=== PATIENT | male | born 1955 | race Asian ===

== ENCOUNTER → 2016-06-22 | Outpatient (CLI) | payer BC ==
[2016-06-22 12:05] LABS: BASOPHILS % 0.4 % (0.0-2.0); EOSINOPHILS # 0.3 10^3/ul (0.0-0.5); EOSINOPHILS % 5.7 % (0.0-7.0); HEMATOCRIT 44.9 % (42.0-52.0); HEMOGLOBIN 15.3 g/dl (14.0-18.0); LYMPHOCYTES # 1.9 10^3/ul (0.8-2.9); LYMPHOCYTES % 37.7 % (15.0-51.0); MEAN CORPUSCULAR HEMOGLOBIN 31.4 pg (29.0-33.0); MEAN CORPUSCULAR HGB CONC 34.2 g/dl (32.0-37.0); MEAN CORPUSCULAR VOLUME 91.8 fl (82.0-101.0); MONOCYTE # 0.4 10^3/ul (0.3-0.9); MONOCYTES % 7.7 % (0.0-11.0); NEUTROPHIL # 2.5 10^3/ul (1.6-7.5); NEUTROPHILS % 48.5 % (39.0-77.0); PLATELET COUNT 219 10^3/UL (140-440); RED BLOOD COUNT 4.89 10^6/ul (4.70-6.10); RED CELL DISTRIBUTION WIDTH 13.2 % (11.5-14.5); UNCORRECTED WBC 5.1 10^3/ul (4.8-10.8); WHITE BLOOD COUNT 5.1 10^3/ul (4.8-10.8)
[2016-06-22 12:06] LABS: CONDITION 1
--- NOTE | 2016-06-22 12:12 | RADRPT ---
PROCEDURE: Chest 2 views. CLINICAL INDICATION: Shortness of breath, pneumonia TECHNIQUE: PA and lateral views of the chest were obtained. COMPARISON: June 04, 2012 FINDINGS: The heart size is within normal limits. Calcified atherosclerosis is noted in the aorta. Prominence of the central pulmonary arteries is unchanged. Median sternotomy wires and surgical clips overlie the heart. The lungs are hyperexpanded. No consolidations are identified. No pneumothorax is seen. Mild peribronchial cuffing is identified in the central lungs. Osseous structures are intact. IMPRESSION: Calcified atherosclerosis in the aorta. Hyperexpanded lungs. Mild peribronchial cuffing in the central lungs. Finding could reflect bronchitis. Stable prominence of the central pulmonary arteries, possibly indicating pulmonary arterial hyperten hamilton. RPTAT: AA .Tyler Gardner MD, MD Date Time Electronically viewed and signed by .Tyler Gardner MD, MD on 06/22/2016 12:12 .P/
[2016-06-22 12:36] LABS: ALBUMIN 4.4 g/dl (3.3-4.9)
[2016-06-22 12:37] LABS: POTASSIUM 4.1 mmol/L (3.5-5.1)
[2016-06-22 12:39] LABS: ALBUMIN/GLOBULIN RATIO 1.69; BILIRUBIN,INDIRECT 0.3 mg/dl (0-1.1); BILIRUBIN,TOTAL 0.3 mg/dl (0.2-1.3); CREATININE 0.64 mg/dl (0.61-1.24)
[2016-06-22 12:40] LABS: CALCIUM 9.1 mg/dl (8.4-10.2); CHOL/HDL RATIO 3.3 RATIO; MAGNESIUM 2.1 mg/dl (1.7-2.5)
[2016-06-22 13:09] LABS: PROSTATE SPECIFIC ANTIGEN 0.9 ng/ml (0.0-4.0); THYROID STIMULATING HORMONE 2.61 MIU/L (0.465-4.680)
== END | disposition home or self-care (01) ==
LOC: RAD 10:54
PROVIDERS: ATTEND Internal Medicine
DX: J18.9 Pneumonia, unspecified organism (principal); E78.5 Hyperlipidemia, unspecified; E03.9 Hypothyroidism, unspecified; E55.9 Vitamin D deficiency, unspecified; N40.0 Benign prostatic hyperplasia without lower urinary tract symptoms
CPT/HCPCS: 71020; 80053; 80061; 82306; 83735; 84153; 84154; 84436; 84443; 85025

== ENCOUNTER 2016-09-15 16:49 | Inpatient (IN) | payer BC ==
[~2016-09-15] VITALS: Ht 167.6 cm; Wt 58.0 kg
[2016-09-15 17:22] LABS: ADD SCAN DIFF NO
[2016-09-15 17:23] LABS: BASOPHIL # 0.1 10^3/ul (0.0-0.1); BASOPHILS % 0.6 % (0.0-2.0); EOSINOPHILS # 0.5 10^3/ul (0.0-0.5); EOSINOPHILS % 6.4 % (0.0-7.0); HEMATOCRIT 45.9 % (42.0-52.0); HEMOGLOBIN 15.7 g/dl (14.0-18.0); LYMPHOCYTES # 2.7 10^3/ul (0.8-2.9); LYMPHOCYTES % 32.1 % (15.0-51.0); MEAN CORPUSCULAR HEMOGLOBIN 31.2 pg (29.0-33.0); MEAN CORPUSCULAR HGB CONC 34.2 g/dl (32.0-37.0); MEAN CORPUSCULAR VOLUME 91.1 fl (82.0-101.0); MONOCYTE # 0.7 10^3/ul (0.3-0.9); MONOCYTES % 7.9 % (0.0-11.0); NEUTROPHIL # 4.4 10^3/ul (1.6-7.5); NEUTROPHILS % 52.8 % (39.0-77.0); PLATELET COUNT 187 10^3/UL (140-415); RED BLOOD COUNT 5.04 10^6/ul (4.70-6.10); RED CELL DISTRIBUTION WIDTH 13.1 % (11.5-14.5); WHITE BLOOD COUNT 8.3 10^3/ul (4.8-10.8)
[2016-09-15] MEDS ORDERED: ENOXAPARIN 80 MG/0.8 ML SYG SC SCH (17:30)
[2016-09-15] MEDS ORDERED: DILTIAZEM-D5W 125MG/125ML DRIP 125 ML IV SCH (17:30)
[2016-09-15] MEDS ORDERED: DILTIAZEM 25 MG INJ IV ONE (17:30)
[2016-09-15] MEDS ORDERED: LEVO25TA53 PO (17:33)
[2016-09-15] MEDS ORDERED: ATOR40TA68 PO (17:33)
[2016-09-15 17:39] LABS: INR 0.89; PT RATIO 0.9
[2016-09-15 17:40] LABS: PARTIAL THROMBOPLASTIN TIME 30.4 Sec (25.0-35.0)
[2016-09-15 17:51] LABS: ALBUMIN 4.4 g/dl (3.3-4.9); CHLORIDE 107 mmol/L (97-110); POTASSIUM 3.3 mmol/L (3.5-5.1); SODIUM 143 mmol/L (135-144)
[2016-09-15 17:53] LABS: BILIRUBIN,INDIRECT 0.3 mg/dl (0-1.1); BILIRUBIN,TOTAL 0.3 mg/dl (0.2-1.3); CREATININE 0.76 mg/dl (0.61-1.24)
[2016-09-15 17:54] LABS: ALANINE AMINOTRANSFERASE 39 IU/L (13-69); ALBUMIN/GLOBULIN RATIO 1.51; ALKALINE PHOSPHATASE 63 IU/L (42-121); ANION GAP 16 (8-16); ASPARTATE AMINO TRANSFERASE 25 IU/L (15-46); BLOOD UREA NITROGEN 13 mg/dl (7-20); CARBON DIOXIDE 23 mmol/L (21-31); GLUCOSE 158 mg/dl (70-220); TOTAL PROTEIN 7.3 g/dl (6.1-8.1)
[2016-09-15 17:55] LABS: CALCIUM 9.1 mg/dl (8.4-10.2)
[2016-09-15 18:06] LABS: TROPONIN-I < 0.012 ng/ml (0.00-0.12)
--- NOTE | 2016-09-15 18:19 | RADRPT ---
PROCEDURE: XR Chest. CLINICAL INDICATION: Chest pain. TECHNIQUE: PA and Lateral views of the chest were obtained. COMPARISON: 06/22/2016. FINDINGS: Cardiomegaly. Atherosclerotic calcifications in the thoracic aorta. Prominent pulmonary arteries smith ggest pulmonary vascular hypertension. Likely hyperinflation of COPD and changes of centrolobular emphysema. The lungs are otherwise clear . No signs of pleural fluid or pneumothorax are seen. The osseous structures and soft tissues are un remarkable. IMPRESSION: 1. Cardiomegaly. 2. Atherosclerotic calcifications in the thoracic aorta. 3. Suspected pulmonary vascular hypertension. 4. Otherwise, no acute process in the chest. RPTAT: [facility] Physician Domingo Date Time Electronically viewed and signed by Physician Domingo on 09/15/2016 18:19 RS/
--- NOTE | 2016-09-15 19:11 | ERA ---
ER Documentation Chief Complaint Date/Time DATE: 09/15/16 TIME: 19:07 Chief Complaint PALPITATIONS STARTED 20MIN PRIOR TO ARRIVAL HPI This is a 61-year-old male who states he was at home when he suddenly developed palpitations that did not resolve after 2030 minutes so he is here for evaluation. 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 The patient states he has no chest pain no dizziness no shortness of breath. No history of arrhythmias in the past. Patient states he currently feels the palpitations but no other symptoms. ROS All systems reviewed and are negative except as per history of present illness. Medications Home Meds Reported Medications Levothyroxine Sodium* (Levothyroxine Sodium*) 25 Mcg Tablet, 25 MCG PO BEFORE BREAKFAST, #30 TAB 09/15/16 Atorvastatin* (Atorvastatin*) 40 Mg Tablet, 40 MG PO QHS, #30 TAB 09/15/16 Allergies Allergies: Coded Allergies: Penicillins (Unverified Allergy, Unknown, 09/15/16) PMhx/Soc Hx Cardiac Disorders: Yes (HTN) Hx Psychiatric Problems: No Hx Miscellaneous Medical Probl: No Hx Alcohol Use: No Hx Substance Use: No Hx Tobacco Use: No Smoking Status: Never smoker FmHx Family History: No coronary disease Physical Exam Vitals Vital Signs Date Time Temp Pulse Resp B/P Pulse Ox O2 Delivery O2 Flow Rate FiO2 09/15/16 18:53 75 18 116/63 99 09/15/16 17:48 70 16 118/70 98 Room Air 09/15/16 17:07 156 21 177/97 98 Room Air 09/15/16 16:51 98.1 100 18 138/99 99 Physical Exam Const: Well-developed, well-nourished Head: Atraumatic, normocephalic Eyes: Normal Conjunctiva, PERRLA, EOMI, normal sclera, no nystagmus ENT: Normal External Ears, Nose and Mouth, moist mucus membranes. Neck: Full range of motion. No meningismus, no lymphadenopathy. Resp: Clear to auscultation bilaterally, no wheezing, rhonchi, rales Cardio: Irregular irregular rate and rhythm, no murmurs, S1 S2 present Abd: Soft, non tender x 4, non distended. Normal bowel sounds, no guarding or rebound, no pulsitile abdominal masses or bruits Skin: No petechiae or rashes, no ecchymosis , no maculopapular rash Back: No midline or flank tenderness Ext: No cyanosis, or edema, FROM x 4, normal inspection, neurovascularly intact x 4 Neur: Awake and alert, STR 5/5 x 4, sensation intact x 4, no focal findings, cerebellum intact Psych: Normal Mood and Affect Result Diagram: 09/15/16 1715 09/15/16 1715 Results 24 hrs Laboratory Tests Test 09/15/16 17:15 White Blood Count 8.310^3/ul Red Blood Count 5.0410^6/ul Hemoglobin 15.7g/dl Hematocrit 45.9% Mean Corpuscular Volume 91.1fl Mean Corpuscular Hemoglobin 31.2pg Mean Corpuscular Hemoglobin Concent 34.2g/dl Red Cell Distribution Width 13.1% Platelet Count 48648^3/UL Mean Platelet Volume 10.0fl Neutrophils % 52.8% Lymphocytes % 32.1% Monocytes % 7.9% Eosinophils % 6.4% Basophils % 0.6% Nucleated Red Blood Cells % 0.0/100WBC Neutrophils # 4.410^3/ul Lymphocytes # 2.710^3/ul Monocytes # 0.710^3/ul Eosinophils # 0.510^3/ul Basophils # 0.110^3/ul Nucleated Red Blood Cells # 0.010^3/ul Prothrombin Time 12.0Sec Prothrombin Time Ratio 0.9 INR International Normalized Ratio 0.89 Activated Partial Thromboplast Time 30.4Sec Sodium Level 143mmol/L Potassium Level 3.3mmol/L Chloride Level 107mmol/L Carbon Dioxide Level 23mmol/L Anion Gap 16 Blood Urea Nitrogen 13mg/dl Creatinine 0.76mg/dl Glucose Level 158mg/dl Calcium Level 9.1mg/dl Total Bilirubin 0.3mg/dl Direct Bilirubin 0.00mg/dl Indirect Bilirubin 0.3mg/dl Aspartate Amino Transf (AST/SGOT) 25IU/L Alanine Aminotransferase (ALT/SGPT) 39IU/L Alkaline Phosphatase 63IU/L Troponin I < 0.012ng/ml Total Protein 7.3g/dl Albumin 4.4g/dl Globulin 2.90g/dl Albumin/Globulin Ratio 1.51 Current Medications Medications (Trade) Dose Ordered Sig/[place]alia Route PRN Reason Start Time Stop Time Status Last Admin Dose Admin Enoxaparin Sodium (Lovenox) 60 mg ONCE SC 09/15/16 17:30 09/15/16 17:22 Diltiazem HCl 20 mg 20 mg ONCE ONCE IV 09/15/16 17:30 09/15/16 17:31 DC 09/15/16 17:22 Diltiazem HCl (Cardizem-D5W 125 Mg/125 ml Drip) 125 ml @ 10 mls/hr [id number] IV 09/15/16 17:30 09/15/16 17:22 Procedures/MDM EKG: Rate/Rhythm: A. fib with rapid ventricular response QRS, ST, QT: NORMAL, QRS, QT] Impression: A. fib with RVR EKG] After Cardizem bolus and drip: EK Rate/Rhythm: Rate controlled atrial fibrillation QRS, ST, QT: NORMAL, QRS, QT] Impression: Atrial fibrillation PROCEDURE: XR Chest. CLINICAL INDICATION: Chest pain. TECHNIQUE: PA and Lateral views of the chest were obtained. COMPARISON: 06/22/2016. FINDINGS: Cardiomegaly. Atherosclerotic calcifications in the thoracic aorta. Prominent pulmonary arteries suggest pulmonary vascular hypertension. Likely hyperinflation of COPD and changes of centrolobular emphysema. The lungs are otherwise clear. No signs of pleural fluid or pneumothorax are seen. The osseous structures and soft tissues are unremarkable. IMPRESSION: 1. Cardiomegaly. 2. Atherosclerotic calcifications in the thoracic aorta. 3. Suspected pulmonary vascular hypertension. 4. Otherwise, no acute process in the chest. RPTAT: [facility] Physician Domingo Date Time Electronically viewed and signed by Physician Domingo on 09/15/2016 18:19 RS/ CC: IGNACIA FOWLER DO Patient admitted to the hospital for workup for A. fib and he has been given Lovenox subcu. Patient is not rate controlled A. fib on Cardizem drip Critical Care Time: 30 minutes Treatments/Evaluations: Close monitoring and treatment of unstable vital signs, cardiorespiratory, and neurologic status, while maintaining tight balance of fluid, respiratory, and cardiac interventions. This time includes discussing the case with the patient and the patient's family. This time does not include all procedures stated elsewhere in this record. This time also includes reviewing old records, labs and radiological studies. This time includes examining and re-examining the patient. Additionally, this time also includes arranging care with admitting and consulting physicians. ] Departure Diagnosis: Primary Impression: Atrial fibrillation with RVR Condition: Stable IGNACIA FOWLER DO September 15, 2016 19:11
[2016-09-15] MEDS ORDERED: ACETAMINOPHEN 325 MG TAB PO PRN (19:30)
[2016-09-15] MEDS ORDERED: ONDANSETRON 4 MG INJ IV PRN (19:30)
[2016-09-15 21:15] VITALS: Ht 167.6 cm; Wt 58.0 kg
[2016-09-15 21:18] VITALS: PULSE 77
[2016-09-15 21:29] VITALS: BP 138/78; RESP 16
[2016-09-15] MEDS ORDERED: POTASSIUM CHLORIDE (SR) 20 MEQ TAB PO STA (21:47)
[2016-09-15] MEDS ORDERED: ATORVASTATIN 80 MG TAB PO SCH (22:00)
[2016-09-15] MEDS ORDERED: ZOLPIDEM 5 MG TAB PO PRN (22:00)
[2016-09-15] MEDS ORDERED: ACETAMINOPHEN 500 MG TAB PO PRN (22:00)
[2016-09-15] MEDS ORDERED: DILTIAZEM 25 MG INJ IV PRN (23:30)
[2016-09-16] VITALS (12 sets, daily range): BP systolic 116–145; BP diastolic 57–68; PULSE 41–90; RESP 16–19
--- NOTE | 2016-09-16 03:26 | HP ---
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 Did have mild dizziness when ambulating and the patient was bro ught in by his to the emergency room, from where he was admitted. MEDICATIONS: 1. Levothyroxine 25 mcg p.o. daily. 2. Atorvastatin 40 mg p.o. daily. 3. Aspirin 81 mg p.o. daily. REVIEW OF SYSTEMS: HEAD: No history of headaches, focal weakness, or numbness. EYES: No blurry vision or glaucoma. The patient wears glasses. EARS, NOSE, THROAT: History of recurrent sinusitis. No history of hoarseness. History of hypothyr oidism. NECK: No history of neck pain. History of hypothyroidism. CHEST: History of chronic cough, smokes a pack a day, which he has done for the last 40+ years. No history of hemoptysis or TB. HEART: No prior history of chest pain. Prior history of palpitations. The patient had an anterose ptal repair 20 years ago at [facility]. Had a treadmill done about 4 years ago which was normal. No history of IL or angina. History of hyperlipidemia. GASTROINTESTINAL: No constipation, diarrhea, change in bowel habits. Colonoscopy 5 years ago was n ormal. Appetite good. No history of weight loss or weight gain. GENITOURINARY: No dysuria, hematuria, kidney stones. No history of polyuria or polydipsia. No his tory of urinary urgency. SLEEP: Normal. No history of snoring. PAST SURGICAL HISTORY: Other surgeries include bilateral inguinal hernia surgery. FAMILY HISTORY: Father at age 50 of throat cancer. Mother at age 9797 years old. Six brot hers, 1 sister, normal and healthy except for hypertension. PHYSICAL EXAMINATION: GENERAL: The patient is an average-built male who is very pleasant, presently in no acute distress. VITAL SIGNS: Heart rate in the 80s, irregularly irregular. Blood pressure 116/63, O2 sat is 98% on room air. HEENT: Head normocephalic. No pallor, cyanosis, or icterus. Tongue is moist. NECK: Supple. No thyromegaly, bruits or lymphadenopathy. CHEST: Clinically clear. HEART: S1, S2 heard with irregularly irregular rhythm. No murmurs. ABDOMEN: Soft, nontender, no hepatosplenomegaly, no pulsatile masses. EXTREMITIES: No edema. Pedal pulsations 2+ bilaterally. Homans sign is negative. NEUROLOGIC: No localizing or lateralizing signs. LABORATORY DATA: Initial sodium was 143, potassium 3.3, BUN 13, creatinine 0.76 and glucose 158. W BC count 8.3, hematocrit 44.9, platelet count 187,000. INR 0.89. EKG, first one, shows atrial fibr illation with rapid ventricular response about 150 a minute. Repeat EKG shows A. fib/flutter patter n. IMPRESSION: 1. New onset atrial fibrillation. 2. Hypokalemia. 3. Hyperlipidemia. 4. Underlying chronic obstructive pulmonary disease secondary to smoking. 5. Hypothyroidism. PLAN: The patient will be admitted to the telemetry. Continue statins. Add Lovenox for now. Hold aspirin. Obtain an echocardiogram. We will request cardiology consultation Dr. Dorantes in the mo rning. Replace potassium. Recheck magnesium and potassium levels along with a lipid panel. Hold S ynthroid for now until we get thyroid function studies. The patient again has been suitably advised regarding the need to stop smoking, consideration of anticoagulation after further cardiac evaluati on. Dictated By: CHERY DESAI MD SR/NTS Conf#: [id number] DID#: [id number] CC: CHERY DESAI MD;*EndCC*
[2016-09-16 07:58] LABS: ADD SCAN DIFF NO
[2016-09-16 08:02] LABS: BASOPHIL # 0.1 10^3/ul (0.0-0.1); BASOPHILS % 0.9 % (0.0-2.0); EOSINOPHILS # 0.6 10^3/ul (0.0-0.5); EOSINOPHILS % 8.5 % (0.0-7.0); HEMATOCRIT 47.1 % (42.0-52.0); HEMOGLOBIN 15.3 g/dl (14.0-18.0); LYMPHOCYTES # 2.6 10^3/ul (0.8-2.9); LYMPHOCYTES % 39.5 % (15.0-51.0); MEAN CORPUSCULAR HEMOGLOBIN 30.4 pg (29.0-33.0); MEAN CORPUSCULAR HGB CONC 32.5 g/dl (32.0-37.0); MEAN CORPUSCULAR VOLUME 93.6 fl (82.0-101.0); MEAN PLATELET VOLUME 10.2 fl (7.4-10.4); MONOCYTE # 0.6 10^3/ul (0.3-0.9); NEUTROPHIL # 2.8 10^3/ul (1.6-7.5); NEUTROPHILS % 41.9 % (39.0-77.0); PLATELET COUNT 187 10^3/UL (140-415); RED BLOOD COUNT 5.03 10^6/ul (4.70-6.10); RED CELL DISTRIBUTION WIDTH 13.5 % (11.5-14.5); WHITE BLOOD COUNT 6.6 10^3/ul (4.8-10.8)
[2016-09-16] MEDS ORDERED: POTASSIUM CHLORIDE (SR) 20 MEQ TAB PO SCH (09:00)
[2016-09-16] MEDS ORDERED: ENOXAPARIN 40 MG/0.4 ML SYG SC SCH (09:00)
[2016-09-16 09:13] LABS: ALANINE AMINOTRANSFERASE 34 IU/L (13-69); ALBUMIN 3.8 g/dl (3.3-4.9); ALKALINE PHOSPHATASE 63 IU/L (42-121); ANION GAP 8 (8-16); ASPARTATE AMINO TRANSFERASE 22 IU/L (15-46); BLOOD UREA NITROGEN 14 mg/dl (7-20); CALCIUM 8.7 mg/dl (8.4-10.2); CARBON DIOXIDE 26 mmol/L (21-31); CHLORIDE 111 mmol/L (97-110); CHOL/HDL RATIO 3.3 RATIO; CHOLESTEROL 129 mg/dl (100-200); CREATININE 0.76 mg/dl (0.61-1.24); GLUCOSE 93 mg/dl (70-220); HDL CHOLESTEROL 39 mg/dl (30-78); MAGNESIUM 2.2 mg/dl (1.7-2.5); POTASSIUM 4.2 mmol/L (3.5-5.1); SODIUM 141 mmol/L (135-144); TOTAL PROTEIN 6.5 g/dl (6.1-8.1); TRIGLYCERIDES 152 mg/dl (0-149)
[2016-09-16 09:16] LABS: TROPONIN-I < 0.012 ng/ml (0.00-0.12)
[2016-09-16 09:23] LABS: THYROID STIMULATING HORMONE 4.12 MIU/L (0.465-4.680)
[2016-09-16 09:59] LABS: BILIRUBIN,INDIRECT 0.4 mg/dl (0-1.1); BILIRUBIN,TOTAL 0.4 mg/dl (0.2-1.3)
--- NOTE | 2016-09-16 15:10 | PN ---
DATE: 09/16/2016 SUBJECTIVE: The patient overall feels better. No chest pain or shortness of breath. OBJECTIVE: VITAL SIGNS: Heart rate 64 per minute, regular. The patient converted to normal sinus rhythm. Blo od pressure 118/57, O2 saturation 98% on room air. HEENT: Head normocephalic. CHEST: Occasional wheezes. HEART: S1, S2 heard with no definite gallops. ABDOMEN: Soft, nontender, no hepatosplenomegaly. EXTREMITIES: No edema. Homans sign is negative. NEUROLOGIC: No localizing or lateralizing signs. LABORATORY DATA: WBC count 6.6, hematocrit 42.9. Sodium 141, potassium 4.2, magnesium 2.2, total c holesterol 129, LDL 60, T4 8.4. TSH 4.12. Echo is pending. IMPRESSION: 1. New onset atrial fibrillation. The patient has converted with calcium channel blockers. 2. Status post anteroseptal repair 20 years prior. No evidence of congestive heart failure. 3. Hypokalemia, resolved. 4. Hyperlipidemia. 5. Chronic obstructive pulmonary disease secondary to smoking. 6. Hypothyroidism. PLAN: Cardiology consultation will be requested with Dr. Dennis, who is covering for janeen Escalera we will follow recommendations. The patient is very anxious to go home. We will discuss the case with Dr. Dennis after the evaluation. Dictated By: CHERY DESAI MD, SR/BENITO Conf#: [id number] DID#: [id number]
--- NOTE | 2016-09-16 18:19 | RADRPT ---
Vent Rate: 72 bpm RR Interval: 0 msec OH Interval: 154 msec QRS Duration: 84 msec QT Interval: 404 msec QTC Interval: 442 msec P-R-T [place]: 63 - -3 - 28 degrees Normal sinus rhythm Possible Left atrial enlargement RSR apos; orattern in V1 suggests right ventricular conduction delay Borderline ECG Electronically Signed By: Luis Hargrove [id number]
--- NOTE | 2016-09-16 19:53 | CONS ---
Date/Time of Note Date/Time of Note DATE: 09/16/16 TIME: 19:46 Assessment/Plan Assessment/Plan Additional Assessment/Plan 61 yom w/ ASD repair (surgical) who presented with palpitations and found to be in afib. Pt converted with IV diltiazem. CHADS-VASC score is 0, so does not meet indication for anticoagulation. His echo reveals normal LV fxn w/ residual shunt (ASD) with left to right flow by color doppler. Will evaluate further as outpt (measure Qp:Qs, possible FOREST). Agree with discharge. - ok to d/c home on beta blockers and aspirin - f/u at cardiology clinic (gave pt my card) Consultation Date/Type/Reason Admit Date/Time September 15, 2016 at 19:16 Date of Consultation: September 16, 2016 Type of Consultation: Cardiology Reason for Consultation afib Hx of Present Illness 61 yom w/ ASD repair (surgical) who presented with palpitations and found to be in afib. He had palpitations for 20-30 min at home. Heart rates up to 140s. He converted to sinus with dilt gtt. Currently, he denies cp, sob, or palpitations. Past Medical History s/p ASD repair - surgical hld hypothyroidism Past Surgical History ASD repair Social History Smoking Status: Current every day smoker Exam/Review of Systems Vital Signs Vitals Vital Signs Date Time Temp Pulse Resp B/P Pulse Ox O2 Delivery O2 Flow Rate FiO2 09/16/16 16:26 68 09/16/16 15:45 98.3 18 116/58 97 09/15/16 17:48 Room Air Intake and Output 09/15/16 09/15/16 09/16/16 15:00 23:00 07:00 Intake Total 800 ml Balance 800 ml Exam Constitutional: alert Neck: No jvd Respiratory: clear to auscultation Cardiovascular: regular rate and rhythm, No systolic murmur Extremities: No edema Neurological: FACILITY OPERATIONS MANAGER II-XII intact Results afib w/ RVR @ 147, nl axis, nl QRS, rSR' in V!-V@, no ischemic ST changes Result Diagram: 09/16/16 0720 09/16/16 0720 Results 24 hrs Laboratory Tests Test 09/16/16 07:20 White Blood Count 6.6 # Red Blood Count 5.03 Hemoglobin 15.3 Hematocrit 47.1 Mean Corpuscular Volume 93.6 Mean Corpuscular Hemoglobin 30.4 Mean Corpuscular Hemoglobin Concent 32.5 Red Cell Distribution Width 13.5 Platelet Count 187 Mean Platelet Volume 10.2 Neutrophils % 41.9 Lymphocytes % 39.5 Monocytes % 9.0 Eosinophils % 8.5 H Basophils % 0.9 Nucleated Red Blood Cells % 0.0 Neutrophils # 2.8 Lymphocytes # 2.6 Monocytes # 0.6 Eosinophils # 0.6 H Basophils # 0.1 Nucleated Red Blood Cells # 0.0 Sodium Level 141 Potassium Level 4.2 Chloride Level 111 H Carbon Dioxide Level 26 Anion Gap 8 # Blood Urea Nitrogen 14 Creatinine 0.76 Glucose Level 93 # Calcium Level 8.7 Magnesium Level 2.2 Total Bilirubin 0.4 Direct Bilirubin 0.00 Indirect Bilirubin 0.4 Aspartate Amino Transf (AST/SGOT) 22 Alanine Aminotransferase (ALT/SGPT) 34 Alkaline Phosphatase 63 Troponin I < 0.012 Total Protein 6.5 Albumin 3.8 Globulin 2.70 Albumin/Globulin Ratio 1.40 Triglycerides Level 152 H Cholesterol Level 129 LDL Cholesterol, Calculated 60 HDL Cholesterol 39 Cholesterol/HDL Ratio 3.3 Thyroid Stimulating Hormone (TSH) 4.120 Thyroxine (T4) 8.4 Medications Medications Current Medications Acetaminophen (Tylenol Tab) 500 mg Q4H PRN PO PAIN AND OR ELEVATED TEMP; Start 09/15/16 at 22:00 Atorvastatin Calcium (Lipitor) 80 mg DAILY PO Last administered on 09/15/16t 22 :22; Admin Dose 80 MG; Start 09/15/16 at 22:00 HILARIO PRICE September 16, 2016 19:53
--- NOTE | 2016-09-16 20:23 | RADRPT ---
Echocardiogram Report Patient Name: ISAMAR SHORE Gender: Male Date: 1955 Study Date: 16-Sep-2016 Medicare Coordinator: Dionne Page [facility] Location: [id number] Ref. Physician: CHERY DESAI Quality: Good Procedures: Transthoracic echocardiogram with complete 2D, M-Mode, and doppler examination. Indications: Atrial Fibrillation, s/p ASD repair. 2D/M Mode Doppler Measurement Value Normal Ranges Measurement Value Normal Ranges LVIDd 2D 4.9 3.5 - 5.6 cm AV Peak Jose D 1.0 m/sec LVIDs 2D 3.2 2.1 - 4.1 cm AV Peak PG 4.1 mmHg LVPWd 2D 0.9 0.6 - 1.1 cm LVOT Peak Jose D 0.8 m/sec IVSd 2D 1.0 0.6 - 1.1 cm LVOT Peak PG 2.4 mmHg AoR Diam 2D 3.1 2.0 - 3.7 cm TR Peak Jose D 2.3 m/sec EDV 2D 110.8 cm3 TR Peak PG 21.7 mmHg ESV 2D 33.6 cm3 RVSP 25.0 mmHg LA Dimen 2D 4.0 2.3 - 4.0 cm Findings Left Ventricle: Lower limits of normal systolic function. Normal left ventricular cavity size. Normal left ventricular wall thickness. Ejection fraction is visually estimated at 55 %. Right Ventricle: Normal right ventricular size. Normal right ventricular systolic function. Left Atrium: There is mild enlargement of left atrium. Right Atrium: The right atrium is normal in size. Atrial Septum: Secondum ASD. Left to right shunt by color Doppler consistent with PFO vs. ASD. Mitral Valve: Mitral valve leaflets appear mildly thickened. Mild mitral annular calcification. Trace mitral regurgitation. Aortic Valve: No significant aortic stenosis or insufficiency. Aortic valve not well visualized. Tricuspid Valve: Normal appearance of the tricuspid valve. Estimated peak PA systolic pressure 25 mmHg. There is mild tricuspid regurgitation. Pulmonic Valve: Normal pulmonic valve appearance. Pericardium: Normal pericardium with no significant pericardial effusion. Aorta: Normal aortic root. IVC: Normal size and normal respiratory collapse consistent with normal right atrial pressure. Conclusions 1.1. Low normal left ventricular function with EF 50-55%. 2.2. Grossly normal right ventricular size and function (though not well visualized). 3.3. S/p ASD surgical repair (w/o patch) with residual left to right shunt (by color doppler). 4.4. The aortic valve is not well seen. Cannot r/o a functionally bicuspid valve. 5.5. Normal estimated pulmonary pressure (25mmHg). Electronically Signed By: Zackary Dennis 16-Sep-2016 20:22:39 -0700 Patient Name: ISAMAR SHORE Study Date: 16-Sep-[id number]
--- NOTE | 2016-09-16 21:24 | DS ---
DATE OF ADMISSION: 09/15/2016 DATE OF DISCHARGE: 09/16/2016 FINAL DIAGNOSES: 1. Paroxysmal atrial fibrillation converted to normal sinus rhythm. 2. Hypokalemia, resolved. 3. Status post anteroseptal repair 20 years prior. No evidence of congestive heart failure. 4. Hyperlipidemia. 5. Chronic obstructive pulmonary disease. 6. Hypothyroidism. 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 Had some mild dizziness while ambulating, and the patient was brought to the emergency room, where he was admitted. The patient was found to be a very pleasant gentleman in no acute dist ress. Heart rate mid 80s, blood pressure 116/63. Chest exam clinically clear. Heart: S1, S2 hear d with no definite gallops. EKG shows atrial fibrillation with rapid ventricular response. Potassi um 3.3, potassium was replaced. Aspirin was held. An echocardiogram was obtained, results of which are pending. The patient was anxious to be discharged. The patient converted to normal sinus rhyt , and the patient was discharged home on metoprolol succinate 25 mg tablets p.o. every day, magnes ium 4 mg p.o. daily. Hold Synthroid for now. Continue aspirin. We will obtain cardiology consulta tion as outpatient after reviewing the echocardiogram. Dictated By: CHERY DESAI MD, SR/NTS Conf#: [id number] DID#: [id number]
== END 2016-09-16 20:20 | disposition home or self-care (01) | DRG 310 ==
LOC: EEVIPCON 16:49 → E/R 16:49 → TEL 19:16
PROVIDERS: ADMIT Internal Medicine; ATTEND Internal Medicine
DX: I48.0 Paroxysmal atrial fibrillation (principal); J44.9 Chronic obstructive pulmonary disease, unspecified; E87.6 Hypokalemia; E78.5 Hyperlipidemia, unspecified; E03.9 Hypothyroidism, unspecified; Z79.82 Long term (current) use of aspirin; F17.200 Nicotine dependence, unspecified, uncomplicated
CPT/HCPCS: 36415; 71010; 80053; 80061; 83735; 84436; 84443; 84484; 85025; 85610; 85730; 93005; 93306; 96372; 96374; 96375; J1650

== ENCOUNTER 2016-10-11 18:00 | Emergency (ER) | payer BC ==
[~2016-10-11] VITALS: Ht 167.6 cm; Wt 57.6 kg
[~2016-10-11 18:00] MED LIST: ATOR40TA68 PO
[2016-10-11 18:02] VITALS: Ht 167.6 cm; Wt 57.6 kg
[2016-10-11] MEDS ORDERED: BENA10TA48 PO (19:37)
--- NOTE | 2016-10-11 19:41 | ERD ---
ER Documentation Chief Complaint Date/Time DATE: 10/11/16 TIME: 19:39 Chief Complaint DIZZINESS AND HYPERTENSIVE, STARTED FEELING PALPITATION 15 MINS AGO HPI This is a 61-year-old male who was recently diagnosed with A. fib with RVR. Patient states that he is here because he was at [facility] and he felt dizzy and flushed so he took his blood pressure with a reading of 194/104. The patient blood pressure now is 160/86. He feels normal again. Patient states he was at an outside ER on Monday night, 2 days ago for the same symptoms and was not sent home with blood pressure medication. The patient takes metoprolol 25 mg a day. He has had no chest pain no shortness of breath. ROS All systems reviewed and are negative except as per history of present illness. Medications Home Meds Active Scripts Benazepril Hcl* (Benazepril Hcl*) 10 Mg Tablet, 10 MG PO DAILY, #30 TAB Prov:IGNACIA FOWLER DO 10/11/16 Reported Medications Atorvastatin* (Atorvastatin*) 40 Mg Tablet, 40 MG PO QHS, #30 TAB 09/15/16 Allergies Allergies: Coded Allergies: Penicillins (Unverified Allergy, Unknown, 09/15/16) PMhx/Soc History of Surgery: Yes (Open heart 22 years ago, hernia repair) Anesthesia Reaction: No Hx Neurological Disorder: No Hx Respiratory Disorders: Yes (PNA) Hx Cardiac Disorders: Yes Hx Psychiatric Problems: No Hx Miscellaneous Medical Probl: No Hx Alcohol Use: No Hx Substance Use: No Hx Tobacco Use: No Smoking Status: Current every day smoker FmHx Family History: No coronary disease Physical Exam Vitals Vital Signs Date Time Temp Pulse Resp B/P Pulse Ox O2 Delivery O2 Flow Rate FiO2 10/11/16 19:12 68 16 164/80 100 Room Air 10/11/16 18:02 98.3 84 22 203/93 98 Physical Exam Const: Well-developed, well-nourished Head: Atraumatic, normocephalic Eyes: Normal Conjunctiva, PERRLA, EOMI, normal sclera, no nystagmus ENT: Normal External Ears, Nose and Mouth, moist mucus membranes. Neck: Full range of motion. No meningismus, no lymphadenopathy. Resp: Clear to auscultation bilaterally, no wheezing, rhonchi, rales Cardio: Regular rate and rhythm, no murmurs, S1 S2 present Abd: Soft, non tender x 4, non distended. Normal bowel sounds, no guarding or rebound, no pulsitile abdominal masses or bruits Skin: No petechiae or rashes, no ecchymosis , no maculopapular rash Back: No midline or flank tenderness Ext: No cyanosis, or edema, FROM x 4, normal inspection, neurovascularly intact x 4 Neur: Awake and alert, STR 5/5 x 4, sensation intact x 4, no focal findings, cerebellum intact Psych: Normal Mood and Affect Results 24 hrs Current Medications Medications (Trade) Dose Ordered Sig/Idalia Route PRN Reason Start Time Stop Time Status Last Admin Dose Admin Nicardipine HCl (Cardene) 30 mg ONCE ONCE PO 10/11/16 20:00 10/11/16 20:01 Procedures/MDM Patient's blood pressure is now down he feels better. He is going to see Dr. Dez valladares tomorrow his [facility]. I will prescribe him Benzapril 10 mg p.o. daily and give him Cardene 30 mg p.o. here. Is having blood pressure spikes that are causing symptoms EKG: Rate/Rhythm: Normal Sinus Rhythm,NL intervals QRS, ST, QT: NORMAL MD, QRS, QT] Impression: NORMAL EKG Departure Diagnosis: Primary Impression: Hypertension Hypertension type: essential hypertension Qualified Code: I10 - Essential hypertension Additional Impression: Dizziness Condition: Stable Patient Instructions: High Blood Pressure (Hypertension), Dizziness, Unk Cause IGNACIA FOWLER DO Oct 11, 2016 19:41
[2016-10-11] MEDS ORDERED: NICARDipine HCL 30 MG CAPSULE PO ONE (20:00)
[2016-10-11 20:14] VITALS: BP 135/87; PULSE 69; RESP 16
== END 2016-10-11 20:15 | disposition home or self-care (01) ==
LOC: E/R 18:00
DX: I10 Essential (primary) hypertension (principal); F17.210 Nicotine dependence, cigarettes, uncomplicated
CPT/HCPCS: 93005

== ENCOUNTER → 2016-10-12 | Outpatient (CLI) | payer BC ==
[~2016-10-12] MED LIST changes: +BENA10TA48 PO
[2016-10-12 12:31] LABS: CALCIUM 9.7 mg/dl (8.4-10.2); CREATININE 0.73 mg/dl (0.61-1.24); MAGNESIUM 2.4 mg/dl (1.7-2.5); POTASSIUM 5.1 mmol/L (3.5-5.1)
== END | disposition home or self-care (01) ==
LOC: LAB 11:46
PROVIDERS: ATTEND Internal Medicine
DX: E87.6 Hypokalemia (principal)
CPT/HCPCS: 80048; 82533; 83735

== ENCOUNTER → 2016-12-23 | Outpatient (CLI) | payer BC ==
[2016-12-23 11:51] LABS: INR 1.54; PROTIME 18.6 Sec (12.2-14.2); PT RATIO 1.5
== END | disposition home or self-care (01) ==
LOC: LAB 11:15
PROVIDERS: ATTEND Internal Medicine Cardiovascular Disease
DX: I48.0 Paroxysmal atrial fibrillation (principal)
CPT/HCPCS: 85610

== ENCOUNTER → 2016-12-29 | Outpatient (CLI) | payer BC ==
[2016-12-29 16:46] LABS: INR 2.88; PROTIME 30.6 Sec (12.2-14.2); PT RATIO 2.4
== END | disposition home or self-care (01) ==
LOC: LAB 08:00
PROVIDERS: ATTEND Internal Medicine Cardiovascular Disease
DX: I48.0 Paroxysmal atrial fibrillation (principal)
CPT/HCPCS: 85610

== ENCOUNTER → 2017-01-06 | Outpatient (CLI) | payer BC | END | disposition home or self-care (01) | LOC: LAB 12:26 | PROVIDERS: ATTEND Internal Medicine | DX: E87.6 Hypokalemia (principal); E55.9 Vitamin D deficiency, unspecified ==

== ENCOUNTER → 2017-04-21 | Outpatient (CLI) | payer BC ==
[2017-04-21 12:02] LABS: INR 3.24; PROTIME 34.1 Sec (11.9-14.9); PT RATIO 2.7
== END | disposition home or self-care (01) ==
LOC: LAB 11:08
PROVIDERS: ATTEND Internal Medicine
DX: I48.0 Paroxysmal atrial fibrillation (principal)
CPT/HCPCS: 85610

== ENCOUNTER → 2017-05-04 | Outpatient (CLI) | payer BC ==
[2017-05-04 11:38] LABS: INR 3.19; PROTIME 33.6 Sec (11.9-14.9); PT RATIO 2.6
== END | disposition home or self-care (01) ==
LOC: LAB 10:50
PROVIDERS: ATTEND Internal Medicine
DX: I48.0 Paroxysmal atrial fibrillation (principal)
CPT/HCPCS: 85610

== ENCOUNTER → 2017-05-23 | Outpatient (CLI) | END | disposition home or self-care (01) ==

== ENCOUNTER → 2017-12-13 | Outpatient (CLI) | END | disposition home or self-care (01) ==

== ENCOUNTER → 2017-12-14 | Outpatient (CLI) | END | disposition home or self-care (01) ==

== ENCOUNTER → 2018-01-29 | Outpatient (CLI) | END | disposition home or self-care (01) ==

== ENCOUNTER → 2018-02-23 | Outpatient (CLI) | END | disposition home or self-care (01) ==

== ENCOUNTER → 2018-05-29 | Outpatient (CLI) | payer SELFPAY ==
[~2018-05-29] MED LIST changes: +BENA10TA4 PO; -BENA10TA48 PO
== END | disposition home or self-care (01) ==
LOC: LAB 11:18
PROVIDERS: ATTEND Physician Assistant Medical
DX: I48.91 Unspecified atrial fibrillation (principal)
CPT/HCPCS: 85610

== ENCOUNTER → 2018-06-29 | Outpatient (CLI) | payer BC | END | disposition home or self-care (01) | LOC: LAB 10:58 | PROVIDERS: ATTEND Internal Medicine | DX: I48.91 Unspecified atrial fibrillation (principal); E55.9 Vitamin D deficiency, unspecified; R73.03 Prediabetes | CPT/HCPCS: 80053; 80061; 82306; 83036; 85025; 85610 ==

== ENCOUNTER → 2018-09-03 | Outpatient (CLI) | payer BC | END | disposition home or self-care (01) | LOC: LAB 12:40 | PROVIDERS: ATTEND Internal Medicine | DX: I48.91 Unspecified atrial fibrillation (principal) | CPT/HCPCS: 80048; 85025; 85610 ==

== ENCOUNTER → 2018-09-24 | Outpatient (CLI) | payer BC | END | disposition home or self-care (01) | LOC: LAB 11:26 | PROVIDERS: ATTEND Internal Medicine | DX: I48.91 Unspecified atrial fibrillation (principal); D64.9 Anemia, unspecified; E03.9 Hypothyroidism, unspecified | CPT/HCPCS: 80053; 84436; 84443; 85025; 85610 ==

== ENCOUNTER → 2018-11-14 | Outpatient (CLI) | payer BC | END | disposition home or self-care (01) | LOC: LAB 10:01 | PROVIDERS: ATTEND Internal Medicine | DX: I48.91 Unspecified atrial fibrillation (principal); N40.0 Benign prostatic hyperplasia without lower urinary tract symptoms | CPT/HCPCS: 84153; 84154; 85025; 85610 ==